=== PATIENT | female | born 1955 | race Caucasian/White ===

== ENCOUNTER → 2017-05-04 14:53 | Outpatient (CLI) | payer MEDICARE ==
[2015-02-24 17:19] VITALS: BMI 29.2
[~2017-05-04 14:53] MED LIST: ACYCLOVIR15 GM TOPICAL; ALDACTONE50 MG PO; COREG25 MG PO; ENULOSE10 G/15 ML PO; GABA; K-DUR20 MEQ PO; KADIAN100 MG PO; KADIAN20 MG PO; KADIAN80 MG PO; KET; LASIX80 MG PO; LEVOTHYROXINE112 MCG PO; LIDO; NORVASC10 MG PO; OMEPRAZOLE40 MG PO; TEMAZEPAM30 MG PO; XIFAXAN550 MG PO; ZOVIRAX400 MG PO; [UNRECOGNIZED DRUG - OTHER]
[2017-05-04 16:04] LABS: HEMATOCRIT 33.3 % (36.0-48.0); HEMOGLOBIN 10.1 g/dL (12-16)
== END | disposition home or self-care (01) ==
LOC: D.LABREF 14:53
PROVIDERS: Family Medicine
DX: K74.60 Unspecified cirrhosis of liver (principal)

== ENCOUNTER → 2017-05-11 19:00 | Outpatient (CLI) | payer MEDICARE ==
[2015-02-24 17:19] VITALS: BMI 29.2
[2017-05-11 19:31] LABS: HEMATOCRIT 35.1 % (36.0-48.0); HEMOGLOBIN 10.8 g/dL (12-16)
== END | disposition home or self-care (01) ==
LOC: D.LABREF 19:00
PROVIDERS: Family Medicine
DX: D64.9 Anemia, unspecified (principal); I85.00 Esophageal varices without bleeding

== ENCOUNTER → 2017-05-19 14:39 | Outpatient (CLI) | payer MEDICARE ==
[2015-02-24 17:19] VITALS: BMI 29.2
[2017-05-19 15:07] LABS: HEMATOCRIT 34.3 % (36.0-48.0); HEMOGLOBIN 10.5 g/dL (12-16)
== END | disposition home or self-care (01) ==
LOC: D.LABREF 14:39
PROVIDERS: Family Medicine
DX: K74.60 Unspecified cirrhosis of liver (principal)

== ENCOUNTER → 2017-05-25 12:28 | Outpatient (CLI) | payer MEDICARE ==
[2015-02-24 17:19] VITALS: BMI 29.2
[2017-05-25 13:39] LABS: HEMATOCRIT 32.1 % (36.0-48.0); HEMOGLOBIN 9.6 g/dL (12-16)
[2017-05-25 13:54] LABS: ALBUMIN 2.2 g/dL (3.4-5.0); ANION GAP 8.9 mmol/L (8-16); BILIRUBIN - TOTAL 2.87 mg/dL (0.2-1.3); CALCIUM 8.7 mg/dL (8.5-10.1); CREATININE - SERUM 0.9 mg/dL (0.6-1.3); POTASSIUM - SERUM 3.9 mmol/L (3.5-5.1); PROTEIN - SERUM 5.9 g/dL (6.4-8.2)
== END | disposition home or self-care (01) ==
LOC: D.LABREF 12:28
PROVIDERS: Family Medicine
DX: D64.9 Anemia, unspecified (principal); R19.7 Diarrhea, unspecified; K74.60 Unspecified cirrhosis of liver

== ENCOUNTER → 2017-06-01 12:59 | Outpatient (CLI) | payer MEDICARE ==
[2015-02-24 17:19] VITALS: BMI 29.2
[2017-06-01 13:25] LABS: HEMATOCRIT 29.2 % (36.0-48.0)
== END | disposition home or self-care (01) ==
LOC: D.LABREF 12:59
PROVIDERS: Family Medicine
DX: K74.60 Unspecified cirrhosis of liver (principal); D64.9 Anemia, unspecified

== ENCOUNTER 2017-06-02 07:22 | Outpatient (CLI) | payer MEDICARE ==
[~2017-06-02] VITALS: Ht 162.6 cm; Wt 96.4 kg
[2017-06-02 08:01] LABS: BASOPHILS 0.5 % (0-2); EOSINOPHILS 3.1 % (0-7); HEMATOCRIT 29.5 % (36.0-48.0); IMMATURE GRANULOCYTES 0.3 % (0-5); LYMPHOCYTES 21.9 % (15-50); MCH 26.8 pg (26.0-34.0); MCHC 30.5 g/dL (31.0-37.0); MCV 87.8 fL (80.0-100.0); MEAN PLATELET VOLUME 10.8 fL (7.4-10.4); MONOCYTES 13.7 % (2-11); NEUTROPHILS 60.5 % (40-80); RBC 3.36 10x6/uL (4.00-5.40); RDW 18.7 % (11.5-14.5); WBC 3.9 10x3/uL (4.8-10.8)
[2017-06-02 08:02] LABS: PLATELET COUNT 66 10x3/uL (130-400)
[2017-06-02 08:14] LABS: INR 1.58 (0.85-1.17); PROTIME 18.3 SECONDS (11.6-15.0)
[2017-06-02 08:15] LABS: APTT 40.8 SECONDS (22.8-39.4)
[2017-06-02] MEDS ORDERED: NORVASC10 MG PO (08:15)
[2017-06-02] MEDS ORDERED: COREG25 MG PO (08:15)
[2017-06-02] MEDS ORDERED: LEVOTHYROXINE112 MCG PO (08:16)
[2017-06-02] MEDS ORDERED: XIFAXAN550 MG PO (08:16)
[2017-06-02] MEDS ORDERED: KADIAN100 MG PO (08:17)
[2017-06-02] MEDS ORDERED: KADIAN20 MG PO (08:17)
[2017-06-02] MEDS ORDERED: OMEPRAZOLE40 MG PO ×2 (08:18→08:21)
[2017-06-02] MEDS ORDERED: K-DUR20 MEQ PO (08:18)
[2017-06-02] MEDS ORDERED: LASIX80 MG PO (08:19)
[2017-06-02] MEDS ORDERED: ALDACTONE50 MG PO (08:19)
[2017-06-02 08:20] LABS: PLATELET ESTIMATE DECREASED
[2017-06-02] MEDS ORDERED: ENULOSE10 G/15 ML PO (08:20)
[2017-06-02 08:21] LABS: ANION GAP 10.2 mmol/L (8-16); BILIRUBIN - TOTAL 2.34 mg/dL (0.2-1.3); CALCIUM 7.8 mg/dL (8.5-10.1); CARBON DIOXIDE 30.4 mmol/L (21.0-32.0); CREATININE - SERUM 0.9 mg/dL (0.6-1.3); POTASSIUM - SERUM 3.6 mmol/L (3.5-5.1); PROTEIN - SERUM 5.5 g/dL (6.4-8.2)
[2017-06-02] MEDS ORDERED: TEMAZEPAM30 MG PO (08:22)
[2017-06-02 08:32] VITALS: BP 105/63; Ht 162.6 cm; Wt 96.4 kg
== END 2017-06-02 10:21 | disposition home or self-care (01) ==
LOC: D.OPS 07:22 → D.CT 08:00 → D.SP 09:00 → D.OPS 09:00
PROVIDERS: Specialist
DX: K74.60 Unspecified cirrhosis of liver (principal); R18.8 Other ascites

== ENCOUNTER → 2017-06-08 12:10 | Outpatient (CLI) | payer MEDICARE ==
[2017-06-02 08:32] VITALS: BMI 36.4
[~2017-06-08 12:10] MED LIST changes: -ACYCLOVIR15 GM TOPICAL; -GABA; -KADIAN80 MG PO; -KET; -LIDO; -ZOVIRAX400 MG PO; -[UNRECOGNIZED DRUG - OTHER]
[2017-06-08 12:57] LABS: HEMATOCRIT 29.9 % (36.0-48.0); HEMOGLOBIN 9.4 g/dL (12-16)
== END | disposition home or self-care (01) ==
LOC: D.LABREF 12:10
PROVIDERS: Family Medicine
DX: K74.60 Unspecified cirrhosis of liver (principal); D64.9 Anemia, unspecified

== ENCOUNTER 2017-06-12 15:57 | Inpatient (IN) | payer MEDICARE ==
[~2017-06-12] VITALS: Ht 162.6 cm; Wt 104.2 kg
--- NOTE | ~2017-06-12 | HEMODYNAMI ---
PATIENT:MARGARET INIGUEZ MEDICAL RECORD: [id number] : 59 LOCATION[facility] [address] [id number] ADMISSION DATE: 06/13/17 Generatedon:06/13/201716:13 Patient name: MARGARET INIGUEZ Patient #: [id number] SSN: : 1955 Date of study: 06/13/2017 Page: Of Hemodynamic Procedure Report Patient Data Patient Demographics Procedure consent was obtained First Name: MARGARET Gender: Female Last Name: GEETHA : 1955 Middle Initial: BRYANT Age: 61 year(s) Patient #: [id number] Race: Unknown Additional ID: [id number] Contact details [address]: [address] [place] [address] State: [place] City: [place] Zip code: [address] Past Medical History Allergies Allergen Reaction Date Comments Reported Other 06/13/2017 iodine,sulfa,codeine,asprin allergy Admission Admission Data Admission Date: 06/12/2017 Admission Time: 20:36 Room #: 2122 Procedure Procedure Types Cath Procedure Peripheral Cath Diagnostic Procedure Miscellaneous PARACENTESIS WITH GUIDE Procedure Description Procedure Date Procedure Date: 06/13/2017 Procedure Start Time: 15:32 Procedure Staff Name Function Marcelo Harrison MD Performing Physician Briana Rankin RT Monitor Kalia Campos RT Scrub Pili Colunga RN Nurse Procedure Medications Medication Administration Route Dosage Versed I.V. 1 mg Fentanyl I.V. 50 mcg Versed I.V. 0.5 mg Fentanyl I.V. 25 mcg Versed I.V. 0.5 mg Fentanyl I.V. 25 mcg Hemodynamics Rest Heart Rate: 73 (bpm) Snapshots Pre Cath Intra NCS Post Cath Vital Signs Time Heart Resp SPO2 etCO2 NIBP (mmHg) Rhythm Pain Sedation Rate (ipm) (%) (mmHg) Status Level (bpm) 14:56:49 72 9 96 27.7 114/73(100) NSR 0 (11) 10(A) , No pain 15:01:01 71 32 30.7 106/61(82) NSR 0 (11) 10(A) , No pain 15:05:06 70 6 31.5 103/68(82) NSR 0 (11) 10(A) , No pain 15:09:16 70 10 30 95/51(87) NSR 0 (11) 10(A) , No pain 15:13:22 69 30 24.7 104/47(70) NSR 0 (11) 10(A) , No pain 15:17:34 70 25 30.7 82/41(74) NSR 0 (11) 10(A) , No pain 15:21:38 67 12 27.7 99/39(66) NSR 0 (11) 10(A) , No pain 15:25:48 70 12 100 23.2 100/29(74) NSR 0 (11) 10(A) , No pain 15:30:47 69 10 97 26.2 Measuring NSR 0 (11) 10(A) , No pain 15:30:49 70 10 97 26.2 96/44(55) NSR 0 (11) 10(A) , No pain 15:34:51 72 10 97 28.4 101/66(91) NSR 0 (11) 10(A) , No pain 15:39:00 69 11 98 24.7 97/47(78) NSR 0 (11) 10(A) , No pain 15:42:23 69 15 28.4 99/55(78) NSR 0 (11) 10(A) , No pain 15:46:29 69 14 26.9 91/57(76) NSR 0 (11) 10(A) , No pain 15:50:37 68 10 97 28.5 92/40(61) NSR 0 (11) 10(A) , No pain 15:54:39 68 8 32.2 96/60(90) NSR 0 (11) 10(A) , No pain 15:58:44 68 8 31.5 100/55(67) NSR 0 (11) 10(A) , No pain 16:02:54 71 20 88 28.5 110/49(74) NSR 0 (11) 10(A) , No pain 16:07:06 69 7 100 30 100/49(72) NSR 0 (11) 10(A) , No pain 16:11:16 71 16 97 33.7 104/48(66) NSR 0 (11) 10(A) , No pain Medications Time Medication Route Dose Verified Delivered Reason Notes Effectivene ss by by 15:33:46 Versed I.V. 1 mg Marcelo Pili for Hunter Colunga RN sedation 15:33:54 Fentanyl I.V. 50 Marcelo Colunga RN, MD 15:38:28 Versed I.V. 0.5 Marcelo Pili for mg Hunter Colunga RN sedation 15:38:35 Fentanyl I.V. 25 Marcelo Colunga RN, MD 15:45:39 Versed I.V. 0.5 Marcelo Pili for mg Hunter Colunga RN sedation 15:45:47 Fentanyl I.V. 25 Marcelo Colunga RN, MD Procedure Log Time Note 14:51:56 Kalia Campos RT (R) (CV) sent for patient. Start room use. 14:52:31 Time tracking: Regular hours 14:52:45 Plan of Care:Hemodynamics will remain stable., Cardiac rhythm will remain stable., Comfort level will be maintained., Respiratory function will remain adequate., Patient/ family verbilizes understanding of procedure., Procedure tolerated without complication., Recovers from procedure without complications.. 14:53:09 Patient arrived from Med II to IR. Patient remains on bed/stretcher for procedure. 14:53:17 Correct patient and procedure confirmed by team. 14:53:27 Signed procedure consent form obtained from patient. 14:53:31 ECG and BP/O2 sat monitors applied to patient. 14:53:49 Full Disclosure recording started 14:54:08 - 14:55:46 Vital chart was started 14:55:50 Baseline sample Acquired. 14:55:55 Baseline sample Acquired. 14:56:30 H&P Date Dictated: 06/13/2017 Within 30 days and on chart.. 14:56:42 Pre-procedure instructions explained to patient. 14:56:43 Pre-op teaching completed and patient verbalized understanding. 14:56:49 Family in waiting room. 14:56:52 Patient NPO since Midnight. 14:59:32 Patient allergic to Other allergyiodine,sulfa,codeine,asprin 14:59:51 Is the patient allergic to Iodine/contrast media? Yes. 14:59:55 Was the patient premedicated? No 15:00:02 Is patient on blood thinner?No 15:00:10 Patient diabetic? No. 15:00:15 - 15:00:23 ----Pre-sedation anethsthesia assessment.---- 15:00:32 Snore? Yes 15:00:41 Sleep apnea? No 15:00:45 Deviated septum? No 15:00:48 Opens mouth fully? Yes 15:00:50 Sticks out tongue? Yes 15:01:00 Dentures? Yes ? 15:01:11 Dentures? Yes in tight 15:01:12 Airway obstruction? No ? 15:01:40 Patient pain scale 8/10 abdomen. 15:01:54 IV patent on arrival in right hand with 0.9% NaCl at O. 15:02:19 Right abdomen area was prepped with chlora-prep and draped in sterile fashion 15:02:27 Alarms reviewed by Morena De Paz 15::29 Sharps counted by scrub and verified by Naveen 15:02:34 - 15:29:48 Physician arrived 15:29:50 --------ALL STOP TIME OUT------ 15:29:56 Final Timeout: patient, procedure, and site verified with staff and physician. All members of the team are in agreement. 15:30:07 Right abdomen site verified by team. 15:30:37 Sedation plan: IV Moderate Sedation Medication:Versed, Fentanyl 15:31:03 Procedure started. 15:32:27 Local anesthetic to Abdominal area with Lidocaine 1% by Marcelo Harrison MD.INITIAL ACCESS ONLY 15:32:30 [id number]-[id number] 8FR CATH DRAIN TRAY opened to sterile field. 15:33:46 Versed 1 mg I.V. was administered by Pili Colunga RN; for sedation; 15:33:54 Fentanyl 50 mcg I.V. was administered by Pili Colunga RN; ; 15:35:39 YUCH needle opened to sterile field. 15:38:28 Versed 0.5 mg I.V. was administered by Pili Colunga RN; for sedation; 15:38:35 Fentanyl 25 mcg I.V. was administered by Pili Colunga RN; ; 15:45:39 Versed 0.5 mg I.V. was administered by Pili Colunga RN; for sedation; 15:45:47 Fentanyl 25 mcg I.V. was administered by Pili Colunga RN; ; 15:47:13 CONNECTING TUBE FOR DRAINAGE BAG ([id number]) opened to sterile field. 16:08:03 7 liters drained 16:08:23 Dermabond Pen opened to sterile field. 16:08:59 Procedure ended.(Physican Out) 16:09:33 Sharps counted by scrub and verified by R.N. 16:09:40 Insertion/operative site no bleeding no hematoma. 16:09:54 Post-op/insertion site Right Abdominal area dressed using a Dermabond. 16:10:10 Post procedure instruction explained to patient.Patient verbalizes understanding. 16:10:20 Procedure and supply charges have been captured, reviewed, submitted an d are correct. 16:12:42 Report given to [facility]. 16:12:50 Patient transfered to [facility] II with Bed. 16:13:23 Vital chart was stopped Device Usage Item Name Manufacture Quantity Catalog Hospital Part Current Mini mal Lot# / Number Charge Number Stock Stock Serial# Code [id number] [employer]usion 1 [id number] 5 8FR CATH DRAIN TRAY YUCH needle [facility] 1 [id number] CONNECTING TUBE [place] 1 [id number] FOR DRAINAGE Scientific BAG ([id number]) Dermabond Pen [employer] 1 [id number] Signature Audit [place] Time Signature Unsigned Intra-Procedure 06/13/2017 Briana 4:13:21 PM Chucho Lemos) (CV) Signatures Monitor : Briana Signature : Chucho [facility] Date : Time : [id number] [place] [address]
[2017-06-12 17:15] LABS: BASOPHILS 0.4 % (0-2); HEMATOCRIT 30.8 % (36.0-48.0); HEMOGLOBIN 9.9 g/dL (12-16); IMMATURE GRANULOCYTES 0.2 % (0-5); LYMPHOCYTES 19.8 % (15-50); MCH 27.7 pg (26.0-34.0); MCHC 32.1 g/dL (31.0-37.0); MCV 86.3 fL (80.0-100.0); MEAN PLATELET VOLUME 9.7 fL (7.4-10.4); MONOCYTES 12.5 % (2-11); NEUTROPHILS 64.1 % (40-80); RBC 3.57 10x6/uL (4.00-5.40); RDW 20.9 % (11.5-14.5); WBC 5.6 10x3/uL (4.8-10.8)
[2017-06-12 17:16] LABS: PLATELET COUNT 82 10x3/uL (130-400)
[2017-06-12 17:30] LABS: ALBUMIN 1.9 g/dL (3.4-5.0); ANION GAP 8.1 mmol/L (8-16); BILIRUBIN - TOTAL 3.38 mg/dL (0.2-1.3); CARBON DIOXIDE 26.6 mmol/L (21.0-32.0); CREATININE - SERUM 1.3 mg/dL (0.6-1.3); POTASSIUM - SERUM 3.7 mmol/L (3.5-5.1); PROTEIN - SERUM 5.9 g/dL (6.4-8.2)
[2017-06-12 17:40] LABS: PLATELET ESTIMATE NORMAL
[2017-06-12 18:05] LABS: INR 1.76 (0.85-1.17)
[2017-06-12 18:11] LABS: APPEARANCE CLOUDY (CLEAR); BILIRUBIN 2+ (NEGATIVE); COLOR AMBER (YELLOW); GLUCOSE NEGATIVE (NEGATIVE); KETONE NEGATIVE (NEGATIVE); NITRITE NEGATIVE (NEGATIVE); PROTEIN NEGATIVE (NEGATIVE); SPECIFIC GRAVITY 1.015 (1.005-1.020)
[2017-06-12 18:15] LABS: BACTERIA MODERATE /hpf (NONE SEEN); RED CELLS - URINE OCC /hpf (0-5); YEAST >1+ WITH HYPHAE /hpf (NONE SEEN)
[2017-06-12 18:16] LABS: GRANULAR CAST OCC /lpf (NONE SEEN); HYALINE CAST OCC /lpf (NONE SEEN)
[2017-06-12 18:17] LABS: AMORPHOUS SEDIMENT <1+ /lpf (NONE SEEN)
[2017-06-12 18:24] LABS: CREATINE KINASE 37 UL (21-215); MAGNESIUM - SERUM 1.6 mg/dL (1.8-2.4); PRO BNP 123 pg/mL (0-125)
[2017-06-12 18:28] LABS: TROPONIN-I < 0.017 ng/mL (0.000-0.060)
[2017-06-12 22:37] VITALS: BP 100/65; BMI 42.0
[2017-06-12] MEDS ORDERED: ZOVIRAX400 MG PO (22:54)
[2017-06-12] MEDS ORDERED: KADIAN80 MG PO (22:55)
[2017-06-12] MEDS ORDERED: LIDO (22:55)
[2017-06-12] MEDS ORDERED: [UNRECOGNIZED DRUG - OTHER] (22:55)
[2017-06-12] MEDS ORDERED: GABA (22:55)
[2017-06-12] MEDS ORDERED: KET (22:55)
[2017-06-12] MEDS ORDERED: ACYCLOVIR15 GM TOPICAL (22:55)
[2017-06-13 03:30] VITALS: BP 100/40
[2017-06-13 08:56] VITALS: BP 120/60
[2017-06-13 12:15] VITALS: BP 103/60
[2017-06-13 12:52] VITALS: Ht 162.6 cm; Wt 104.2 kg
[2017-06-13 18:06] LABS: PROTEIN - BODY FLUID 0.6 G/DL
[2017-06-13 19:00] VITALS: BP 91/54
[2017-06-13 19:05] LABS: MACROPHAGES BF 27 %; MESOTHELIALS BF 7 %; NEUT - BF 21 %
[2017-06-13 19:05] LABS: BASOPHILS 0.2 % (0-2); EOSINOPHILS 1.4 % (0-7); HEMATOCRIT 28.7 % (36.0-48.0); IMMATURE GRANULOCYTES 0.4 % (0-5); MCH 27.4 pg (26.0-34.0); MCHC 31.4 g/dL (31.0-37.0); MCV 87.2 fL (80.0-100.0); MONOCYTES 11.1 % (2-11); NEUTROPHILS 68.9 % (40-80); PLATELET COUNT 76 10x3/uL (130-400); RBC 3.29 10x6/uL (4.00-5.40); RDW 20.9 % (11.5-14.5); WBC 5.1 10x3/uL (4.8-10.8)
[2017-06-13 19:27] LABS: ALBUMIN 1.5 g/dL (3.4-5.0); ANION GAP 11.4 mmol/L (8-16); BILIRUBIN - DIRECT 2.21 mg/dL (0.00-0.30); BILIRUBIN - INDIRECT 0.87 mg/dL (0.00-1.00); BILIRUBIN - TOTAL 3.08 mg/dL (0.2-1.3); CALCIUM 7.6 mg/dL (8.5-10.1); CARBON DIOXIDE 26.7 mmol/L (21.0-32.0); POTASSIUM - SERUM 4.1 mmol/L (3.5-5.1); PROTEIN - SERUM 4.8 g/dL (6.4-8.2)
[2017-06-13 19:31] LABS: CREATININE - SERUM 1.7 mg/dL (0.6-1.3)
[2017-06-14 04:00] VITALS: BP 107/55
[2017-06-14 06:13] LABS: BASOPHILS 0.1 % (0-2); EOSINOPHILS 1.1 % (0-7); HEMATOCRIT 30.3 % (36.0-48.0); HEMOGLOBIN 9.6 g/dL (12-16); IMMATURE GRANULOCYTES 0.3 % (0-5); LYMPHOCYTES 12.2 % (15-50); MCHC 31.7 g/dL (31.0-37.0); MCV 85.4 fL (80.0-100.0); MEAN PLATELET VOLUME 10.1 fL (7.4-10.4); MONOCYTES 12.6 % (2-11); NEUTROPHILS 73.7 % (40-80); PLATELET COUNT 85 10x3/uL (130-400); RBC 3.55 10x6/uL (4.00-5.40)
[2017-06-14 06:17] LABS: WBC 7.9 10x3/uL (4.8-10.8)
[2017-06-14 06:28] LABS: ALBUMIN 1.5 g/dL (3.4-5.0); ANION GAP 9.3 mmol/L (8-16); BILIRUBIN - TOTAL 3.2 mg/dL (0.2-1.3); CALCIUM 7.6 mg/dL (8.5-10.1); CARBON DIOXIDE 28.8 mmol/L (21.0-32.0); CREATININE - SERUM 1.6 mg/dL (0.6-1.3); POTASSIUM - SERUM 4.1 mmol/L (3.5-5.1)
[2017-06-14 08:25] VITALS: BP 84/50
[2017-06-14 12:23] VITALS: BP 94/50
== END 2017-06-14 15:59 | disposition home health service (06) | DRG 433 ==
LOC: D.ER 15:57 → D.M2 20:36 → OBSVTIME 20:36 → D.M2 06-13 15:38
PROVIDERS: Emergency Medicine; Family Medicine; Nurse Practitioner Family; Radiology Diagnostic Radiology
PROC: 0W9G3ZZ Drainage of Peritoneal Cavity, Percutaneous Approach (ICD-10-PCS; principal; 2017-06-13 15:15)
DX: K74.60 Unspecified cirrhosis of liver (principal); R18.8 Other ascites; I10 Essential (primary) hypertension; Z87.891 Personal history of nicotine dependence

== ENCOUNTER → 2017-06-15 12:00 | Outpatient (CLI) | payer MEDICARE ==
[2017-06-13 12:52] VITALS: BMI 41.9
[~2017-06-15 12:00] MED LIST changes: +ACYCLOVIR15 GM TOPICAL; +GABA; +KADIAN80 MG PO; +KET; +LIDO; +ZOVIRAX400 MG PO; +[UNRECOGNIZED DRUG - OTHER]
== END | disposition home or self-care (01) ==
LOC: D.LABREF 12:00
DX: K72.90 Hepatic failure, unspecified without coma (principal)